=== PATIENT | female | born 1965 ===

== ENCOUNTER 2024-03-17 15:55 | Emergency (ER) | payer BC, SELFPAY ==
[2024-03-17 16:09] VITALS: BP 151/85
[2024-03-17 16:35] LABS: % Basophils 0.3 % (0-2); % Eosinophils 2.9 % (0-6); % Immature Granulocytes 0.5 % (0-0.5); % Lymphocytes 26.2 % (20.5-51.1); % Monocytes 7.8 % (1.7-9.3); % Neutrophils 62.3 % (42.2-75.2); Absolute Eosinophils 0.3 10^3/uL (0-0.7); Absolute Immature Granulocytes 0.1 10^3/uL (0-0.05); Absolute Lymphocytes 2.6 10^3/uL (1.2-3.4); Absolute Monocytes 0.8 10^3/uL (0.1-0.6); Absolute Neutrophils 6.1 10^3/uL (1.4-6.5); Hematocrit 34.1 % (37.0-47.0); Mean Corp Hgb Conc. 35.2 g/dL (33.0-37.0); Mean Corpuscular Volume 82.4 fL (81.0-99.0); Mean Platelet Volume 10.5 fL (7.4-10.4); Nucleated Red Blood Cells % 0 %; Platelet Count 267 10^3/uL (130-400); Red Blood Cell Count 4.14 10^6/uL (4.20-5.40); White Blood Cell Count 9.9 10^3/uL (4.8-10.8)
[2024-03-17 17:00] LABS: Troponin I 0.018 ng/ml
[2024-03-17 17:13] LABS: ALT (SGPT) 32 U/L (0-35); AST (SGOT) 29 U/L (14-36); Albumin 4.2 g/dl (3.5-5.0); Alkaline Phosphatase 81 U/L (38-126); Blood Urea Nitrogen 14 mg/dl (7-17); Calcium 9.1 mg/dl (8.4-10.2); Carbon Dioxide 21 mmol/L (22-30); Chloride 109 mmol/L (98-107); Glucose 124 mg/dl (70-99); Sodium 140 mmol/L (135-145); Total Bilirubin 0.6 mg/dl (0.2-1.3); Total Protein 6.9 g/dl (6.3-8.2); eGFR > 60.00
[2024-03-17 18:00] VITALS: BP 151/71
[2024-03-17 18:06] VITALS: BMI 33.4
--- NOTE | 2024-03-17 18:34 | ED.GENMED ---
History of Present Illness
General
Chief Complaint: Breathing Problem
Source: patient
Time Seen by Provider: 03/17/24 18:19
History of Present Illness
History of Present Illness:
58yoF with a history of rheumatoid arthritis not on medication, diet controlled hyperlipidemia, hypothyroidism, and GERD presenting with her for evaluation of an irregular heart rhythm. Patient was diagnosed with COVID about 2 weeks ago.
She started to have worsening sinus and ear pressure about 4 days ago with associated mild headache. She decided to go to urgent care for evaluation. While at urgent care, she underwent a chest x-ray which was reportedly normal. She also had an
EKG which showed frequent PVCs and she was sent to the ED for evaluation. Patient denies any palpitations, chest pain, dizziness, or syncope. She has some mild dyspnea with exertion which she attributes to deconditioning due to her recent illness.
Patient has no history of heart disease. She had a CT calcium score about a year ago which was normal. She had an echo 4 years ago which was also reportedly normal.
Phy Exam
General Physical Exam
General Presentation: well appearing
General age: appears stated age
General Skin: warm and dry
General Habitus: normal
General Mental: alert
General Hydration: appears well hydrated
ENT Exam
ENT Exam: TM's normal, pharynx normal and neck supple
Cardiovascular Exam
Cardiovascular Exam: regular rate/rhythm, no edema and no murmur
Pulmonary Exam
Pulmonary Exam: lungs clear, no respiratory distress, no crackles and no wheezing
Skin Exam
Skin Exam: normal color and warm/dry
Psychiatric Exam
Psychiatric Exam: normal mood/affect
Scores
Heart Failure Risk
Heart Failure Risk Score: Not Applicable
Course
Orders/Labs/Results
Orders:
Orders
03/17/24 16:15
Electrocardiogram (*1) Urgent
Reason for Study: Abnormal EKG
EKG- Treatment ONCE
03/17/24 16:27
CMP [Comprehensive Metabolic Panel] Urgent
Complete Blood Count/With Diff Urgent
Troponin I Urgent
03/17/24 18:33
Electrocardiogram (*1) Urgent
Reason for Study: Palpitations
Cardiac Monitoring- Treatment ONCE
EKG- Treatment ONCE
03/17/24 18:44
Troponin I Urgent
Abnormal Lab Results
03/17/24
16:27
RBC 4.14 L 10^6/uL
(4.20-5.40)
Hct 34.1 L %
(37.0-47.0)
MPV 10.5 H fL
(7.4-10.4)
Abs Immat Gran (auto) 0.1 H 10^3/uL
(0-0.05)
Absolute Monos (auto) 0.8 H 10^3/uL
(0.1-0.6)
Chloride 109 H mmol/L
(98-107)
Carbon Dioxide 21 L mmol/L
(22-30)
Glucose 124 H mg/dl
(70-99)
03/17/24 16:27
03/17/24 16:27
Vital Signs
Initial and Last Documented VS:
Initial Vital Signs
Temp Pulse Resp BP Pulse Ox
98.1 F 75 16 151/85 97
03/17/24 16:09 03/17/24 16:09 03/17/24 16:09 03/17/24 16:09 03/17/24 16:09
Last Documented Vital Signs
Temp Pulse Resp BP Pulse Ox
98.1 F 58 18 140/70 95
03/17/24 16:09 03/17/24 19:45 03/17/24 19:45 03/17/24 19:00 03/17/24 19:45
MDM/Problems Addressed
Differential Diagnosis Includes:
58yoF here with an irregular heart rhythm. Diagnosed with COVID 2 weeks ago. Went to urgent care for ear/head pressure. EKG done which showed frequent PVCs and she was sent to the ED. She denies chest pain, shortness of breath, dizziness, syncope.
Heart rate 75 in triage. BP stable. She is well appearing in no distress. Exam is reassuring. Differential diagnosis includes but is not limited to: PVCs, electrolyte abnormality, sinusitis, doubt ACS
Initial ED plan: Cardiac labs and EKG obtained in triage. EKG shows NSR without ectopy or ischemic changes. Troponin is WNL at 0.018. Remainder of labs overall unremarkable including normal electrolytes. Will place on bus monitor and check delta
troponin/EKG.
*EKG
Interpreted by ED Provider?: Yes
EKG Intrepretation Date: 03/17/24
Heart Rate: 66
Rate: normal
Rhythm: sinus
[place]: normal axis
Interval: normal interval
QRS Pattern: normal QRS
Ischemia: no ischemia
*Critical Care Note
Total Time (30-74mins, 75-104mins- exclusive of procedures): Not Applicable
Update Note
Update Note:
Repeat EKG again shows normal sinus rhythm without ectopy. Troponin is actually downtrending. No telemetry episodes while in ED. She is stable for discharge. Will cover with Augmentin for possible superimposed bacterial sinusitis. She was
advised to follow-up closely with her PCP. ED return precautions discussed. She was discharged in stable condition.
ED Attending Note
-
Portions of this chart may have been created with voice recognition software.� Occasional wrong word or��sound alike� substitutions may have occurred due to the inherent limitations of voice recognition software.
Discharge Plan
Departure
Patient Disposition: Home (Routine Discharge)
Date of Disposition: 03/17/24
Time of Disposition: 19:56
Patient with high blood pressure during this ER visit?: Yes
Discharge Problem:
Sinusitis, Asymptomatic PVCs
Instructions: Sinusitis in adults
Prescriptions:
New
amoxicillin-pot clavulanate 875-125 mg tablet
1 tab PO BID Qty: 14 0RF
Referrals:
UNKNOWN - PT DOES,NOT KNOW [Unknown Provider] -
Activity Restrictions/Additional Instructions:
Take antibiotics as prescribed.
Please call tomorrow to schedule a follow-up appointment with your family doctor. Return to the ER with any new or worsening symptoms.
Interventions
Interventions:
*Risk Screen - Suicide Last Done: 03/17/24 18:07
*General Assessment Last Done: 03/17/24 18:07
*Neglect/Abuse Screening Last Done: 03/17/24 18:07
ED- Fall Risk Assessment Last Done: 03/17/24 18:07
*ED COVID-19 Vaccine History Last Done: 03/17/24 18:07
*Nursing Disposition Last Done: 03/17/24 20:02
ED- Cardiac Assessment Last Done: 03/17/24 18:07
ED- Pulmonary Assessment Last Done: 03/17/24 18:07
Discharge Date and Time
Discharge Date/Time: 03/17/24 20:38
Print Language: CYMRO
[2024-03-17 19:00] VITALS: BP 140/70
[2024-03-17 19:24] LABS: Troponin I < 0.012 ng/ml
== END 2024-03-17 20:38 | disposition home or self-care (01) ==
LOC: EMR 15:55
PROVIDERS: Emergency Medicine; Physician Assistant; EMERGENCY PHYSICIAN Emergency Medicine; FAMILY PHYSICIAN Internal Medicine
DX: J01.90 Acute sinusitis, unspecified (principal); R51.9 Headache, unspecified; R06.09 Other forms of dyspnea; I49.3 Ventricular premature depolarization; R03.0 Elevated blood-pressure reading, without diagnosis of hypertension; M06.9 Rheumatoid arthritis, unspecified; E78.5 Hyperlipidemia, unspecified; E03.9 Hypothyroidism, unspecified; K21.9 Gastro-esophageal reflux disease without esophagitis; Z86.16 Personal history of COVID-19; Z88.1 Allergy status to other antibiotic agents; Z88.2 Allergy status to sulfonamides
CPT/HCPCS: 99284; 80053; 84484; 85025; 93005